=== PATIENT | male | born 1960 | race American Indian/Alaskan Native ===

== ENCOUNTER 2019-09-01 09:33 | Day surgery (SDC) | payer OTHER ==
[~2019-09-01 09:33] MED LIST: NACL 0.9% 1000 ML 1,000 ML IV SCH
--- NOTE | 2019-09-01 10:52 | Anesthesia Day of Surgery ---
Anesthesia Day of Surgery - Day of Surgery Patient Examined: Yes Patient H&P Reviewed: Yes Patient is NPO: Yes
--- NOTE | 2019-09-01 10:52 | Anesthesia Consultation ---
Anesthesia Consult and Med Hx Date of service: 09/01/19 - Airway Anesthetic Teeth Evaluation: Poor (some missing teeth), Chipped ROM Head & Neck: Adequate Mental/Hyoid Distance: Adequate Mallampati Class: Class III Intubation Access Assessment: Possibly Difficult - Pre-Operative Health Status ASA Pre-Surgery Classification: ASA2 Proposed Anesthetic Plan: MAC - Cardiovascular System Hx Hypertension: Yes - Other Systems Hx Obesity: Yes (BMI 31.3)
[2019-09-01] MEDS ORDERED: DIPRIVAN 10 MG/ML IV ONE ×2 (10:56→10:57)
[2019-09-01] MEDS ORDERED: XYLOCAINE MPF 2% ONE (11:00)
--- NOTE | 2019-09-01 11:35 | Procedure Note ---
Date of procedure: 09/01/19 Pre-op diagnosis: Colon Polyp Screening Post-op diagnosis: other (No Colon Polyps noted/Minor,Left Colon Diverticuli/Minor,Internal Hemorrhoid) Procedure: Colonoscopy Anesthesia: MAC Surgeon: YESSICA AZUL Estimated blood loss: none Pathology: none Condition: stable Disposition: same day (Encourage fiber intake. Resume home medication and follow up in 1 to 2 weeks ([phone]).)
--- NOTE | 2019-09-01 11:41 | Operative Report ---
PROCEDURE: Colonoscopy. INDICATIONS: This is a 59-year-old -[place] gentleman who had a colonoscopy done as part of colon polyp screening. DESCRIPTION OF PROCEDURE: Procedure was done after getting informed consent with MAC anesthesia. Initial rectal exam was unremarkable. Instrument was passed through the rectum onto the cecum, which was identified with ileocecal valve and the appendiceal orifice. Visualization was fair to good. The scope was retroflexed in the cecum. No additional pathology was noted in the cecum. Cecum, ascending colon, transverse colon showed normal mucosa. There were a few minor scattered diverticula noted in the left colon and the rectum showed minor internal hemorrhoid on the retroverted view. There was no bleeding associated with the procedure. No complications associated with the procedures. No biopsies were done. ASSESSMENT: Colon polyp screening, no colon polyps noted. Few minor scattered diverticula in the left colon and minor internal hemorrhoid. PLAN: To encourage the patient to take fiber supplements and resume home medication. Follow up in the office in 1-2 weeks' time. The procedure was done in the GI lab with assistance of the GI lab team, which included RNMarilynn as well as Huber thomas and with the assistance of anesthesia. JOB# [id number] TANNER/RISHABH
[2019-09-01 12:06] VITALS: BP 132/87
== END 2019-09-01 09:34 | disposition home or self-care (01) ==
LOC: GIO 09:33
DX: Z12.11 Encounter for screening for malignant neoplasm of colon (principal); K57.30 Diverticulosis of large intestine without perforation or abscess without bleeding; K64.8 Other hemorrhoids; I10 Essential (primary) hypertension; E66.9 Obesity, unspecified; Z98.890 Other specified postprocedural states; Z68.31 Body mass index [BMI] 31.0-31.9, adult; Z96.652 Presence of left artificial knee joint
CPT/HCPCS: 45378; J2704; J7030